=== PATIENT | female | born 1960 | race Caucasian/White ===

== ENCOUNTER 2020-09-05 12:19 | Outpatient (REF) | payer OTHER, SELFPAY ==
[2020-09-05 14:08] LABS: MANUAL DIFF FLAG NO
[2020-09-05 14:16] LABS: Basophils Percent Auto 0.8 % (0-2); Eosinophils Absolute Auto 0.2 X10*3/uL (0.0-0.4); Eosinophils Percent Auto 4.7 % (0-4); Hematocrit 38.9 % (37-47); Imm Gran Abs Auto 0.01 X10*3/uL (0.00-0.03); Imm Gran Pct Auto 0.2 % (0.0-0.4); Lymphocytes Absolute Auto 1.8 X10*3/uL (1.2-4.9); Lymphocytes Percent Auto 34.3 % (20-40); Mean Corpuscular HGB Conc 33.4 g/dl (31.0-35.0); Mean Corpuscular Hemoglobin 30.2 pg (27.0-33.0); Mean Corpuscular Volume 90.5 fL (80-98); Mean Platelet Volume 10.1 fL (9.4-12.3); Monocytes Absolute Auto 0.3 X10*3/uL (0.1-1.2); Neutrophils Absolute Auto 2.8 X10*3/uL (2.0-8.3); Platelet Count 265 X10*3/uL (160-400); Red Cell Distribution Width 12.7 % (11.0-16.0); White Blood Count 5.2 X10*3/uL (4.8-10.8)
[2020-09-05 14:47] LABS: Alanine Aminotransferase 26 U/L (0-31); Albumin Level 4.4 g/dL (3.5-5.0); Alkaline Phosphatase 54 U/L (39-117); Anion Gap 12 (12-20); Aspartate Amino Transferase 25 U/L (5-31); Bilirubin Direct 0.3 mg/dL (0.0-0.5); Bilirubin Total 0.5 mg/dL (0.0-1.0); Blood Urea Nitrogen 17 mg/dL (9-16); C Reactive Protein 0.11 mg/dL (< or = 0.50); Calcium 9.4 mg/dL (8.4-10.2); Carbon Dioxide 30 mmol/L (22-29); Chloride 104 mmol/L (96-108); Estimated Glomerular Filt Rate > 60; Potassium 4.2 mmol/l (3.3-5.1); Sodium 142 mmol/L (135-145); Total Protein 6.7 g/dL (6.5-8.0)
[2020-09-05 15:10] LABS: Thyroid Stimulating Hormone 1.22 mIU/mL (0.32-4.0)
[2020-09-05 15:14] LABS: Erythrocyte Sedimentation Rate 3 MM/HR (0-20)
[2020-09-05 18:15] LABS: T4 Thyroxine 6.9 ug/dL (4.5-12.0)
[2020-09-06 17:08] LABS: Immunoglobulin A 67 mg/dL (47-310)
[2020-09-06 18:42] LABS: Transglutaminase Ab IgG 3 U/mL; Transglutaminase IgA 1 U/mL
[2020-09-09 18:52] LABS: Endomysial IgA Antibody Negative (Negative)
[2020-09-10 13:26] LABS: Gliadin Deamidated IgA Ab 2 Units; Gliadin Deamidated IgG Ab 2 Units
== END 2020-09-05 12:20 | disposition home or self-care (01) ==
LOC: HO.10HDL 12:19
PROVIDERS: Visit Provider Internal Medicine
DX: R19.7 Diarrhea, unspecified (principal)
CPT/HCPCS: 36415; 80051; 80076; 82310; 82565; 82784; 83516; 84436; 84443; 84520; 85025; 85652; 86140; 86255; 86256

== ENCOUNTER 2020-09-06 13:09 | Outpatient (REF) | payer OTHER, SELFPAY ==
[2020-09-06 15:02] LABS: Leukocytes Stool Qualitative NEGATIVE (NEGATIVE)
[2020-09-07 01:37] LABS: CDIFF Ag Negative (Negative); CDIFF Internal ctrl Dots and bkg OK (V); CDiff Toxin Negative (Negative)
[2020-09-13 15:57] LABS: Calprotectin, Fecal 23 mcg/g
== END 2020-09-06 13:10 | disposition home or self-care (01) ==
LOC: HO.10HDLNP 13:09
PROVIDERS: Visit Provider Internal Medicine
DX: R19.7 Diarrhea, unspecified (principal)
CPT/HCPCS: 83993; 87045; 87046; 87177; 87209; 87324; 87329; 87449; 89055

== ENCOUNTER 2020-09-23 12:21 | Day surgery (SDC) | payer OTHER, SELFPAY ==
[2020-09-17 12:44] VITALS: BMI 29.5
--- NOTE | 2020-09-19 15:46 | P.CONAN_ITS ---
Documented by User: Elsie Salinas 09/19/20 15:47 HPI - Anesthesia Eval Consult details Narrative: 60yo F for Colonoscopy PMFSH Past Medical History Medical History Arrhythmia Asthma Depression Elevated cholesterol HTN (hypertension) Lab test negative for COVID-19 virus Sleep apnea Thyroid disease Surgical History Surgical History H/O colonoscopy Hx of cone biopsy of cervix Hx of left inguinal hernia repair Hx of nasal septoplasty Hx of tonsillectomy Social History Social History Smoking Status: Never smoker Use of substances other than those prescribed or required for medical reasons: No Have you been hit, kicked, punched, or otherwise hurt by someone within the past year? If so, by whom?: No Advance Directives Information Provided: No Recently lost weight without trying: No Meds Allergies Allergy/AdvReac Type Severity Reaction Status Date / Time Sulfa (Sulfonamide Allergy Intermediate HIVES Verified 09/17/20 13:00 Antibiotics) [SULFA (SULFONAMIDE ANTIBIOTICS)] ENVIRONMENTAL Allergy Intermediate ASTHMA Uncoded 09/17/20 13:00 Home Medications Medication Instructions Recorded Confirmed Type albuterol sulfate [ProAir HFA] 2 puff INHALATION Q4-6H PRN 09/17/20 09/17/20 History bupropion HCl [Wellbutrin SR] 150 mg PO DAILY 09/17/20 09/17/20 History estradiol [Estrace] 1 g VAGINAL 3XW 09/17/20 09/17/20 History fluticasone propionate [Flonase] 1 spray INTRANASAL DAILY 09/17/20 09/17/20 Hist ory levothyroxine [Synthroid] 100 mcg PO DAILY 09/17/20 09/17/20 History lisinopril 20 mg PO DAILY 09/17/20 09/17/20 History multivitamin 1 tab PO DAILY 09/17/20 09/17/20 History sertraline [Zoloft] 150 mg PO DAILY 09/17/20 09/17/20 History simvastatin 10 mg PO BEDTIME 09/17/20 09/17/20 History Exam Exam Date and Time: September 19, 2020 1546 Height,Weight and Vital Signs: Height 5 ft 5.5 in Weight 81.647 kg Assessment and Plan Assessment Anesthesia Assessment: Chart Reviewed Documented by User: Norma Villa 09/23/20 13:07 [facility] Past Medical History Medical History Arrhythmia Asthma Depression Elevated cholesterol HTN (hypertension) Lab test negative for COVID-19 virus Sleep apnea Thyroid disease Surgical History Surgical History H/O colonoscopy Hx of cone biopsy of cervix Hx of left inguinal hernia repair Hx of nasal septoplasty Hx of tonsillectomy Social History Social History Smoking Status: Never smoker Use of substances other than those prescribed or required for medical reasons: No Have you been hit, kicked, punched, or otherwise hurt by someone within the past year? If so, by whom?: No Advance Directives Information Provided: No Recently lost weight without trying: No Meds Allergies Allergy/AdvReac Type Severity Reaction Status Date / Time Sulfa (Sulfonamide Allergy Intermediate HIVES Verified 09/17/20 13:00 Antibiotics) [SULFA (SULFONAMIDE ANTIBIOTICS)] ENVIRONMENTAL Allergy Intermediate ASTHMA Uncoded 09/17/20 13:00 Home Medications Medication Instructions Recorded Confirmed Type albuterol sulfate [ProAir HFA] 2 puff INHALATION Q4-6H PRN 09/17/20 09/17/20 History bupropion HCl [Wellbutrin SR] 150 mg PO DAILY 09/17/20 09/17/20 History estradiol [Estrace] 1 g VAGINAL 3XW 09/17/20 09/17/20 History fluticasone propionate [Flonase] 1 spray INTRANASAL DAILY 09/17/20 09/17/20 History levothyroxine [Synthroid] 100 mcg PO DAILY 09/17/20 09/17/20 History lisinopril 20 mg PO DAILY 09/17/20 09/17/20 History multivitamin 1 tab PO DAILY 09/17/20 09/17/20 History sertraline [Zoloft] 150 mg PO DAILY 09/17/20 09/17/20 History simvastatin 10 mg PO BEDTIME 09/17/20 09/17/20 History Exam Airway Mallampati Class: II TM Dist: >3cm Neck ROM: Full Heart: RRR Lungs: CTA BL Assessment and Plan Assessment Anesthesia Assessment: Anesthesia Plan Discussed and Chart Reviewed Final Anesthetic Review NPO: Yes (Sio wTer with meds) ASA Class: II Final Preanesthetic Review: No Changes in Pt Med Stat, Consent Obtained/Reviewed and Anes Risks/Benef Reviewed Patient Risk: Intermediate Procedure Risk: Intermediate Anesthetic Plan Anesthetic Plan: MAC: Disposition: Standard PACU
[2020-09-23 12:52] VITALS: BP 164/87; PULSE 58; RESP 18; TEMP 36.3; O2SAT 100
[2020-09-23] MEDS: Lactated Ringers 1,000 ML 100 ML IVCONT (13:05)
[2020-09-23 14:52] VITALS: BP 118/77; PULSE 66; RESP 18; TEMP 36.4; O2SAT 100
--- NOTE | 2020-09-23 14:58 | PM.OP ---
Brief Operative Note Date of Service: 09/23/20 Pre-op diagnosis: Diarrhea Post-op diagnosis: other (R/O Microscopic colitis) Procedure: Colonoscopy to cecum and TI with biopsies Surgeon: Ilya Isabel Anesthesia: MAC Estimated blood loss (mL): 3.0 Pathology: other (A. Terminal ileum B. Ascending colon C. Descending colon) Condition: stable Disposition: PACU
[2020-09-23 15:05] VITALS: BP 116/66; PULSE 55; RESP 18; O2SAT 100
--- NOTE | 2020-09-23 15:10 | OP_ITS ---
SURGEON: Ilya Isabel MD INDICATIONS: The patient presents for evaluation of change in bowel habits and diarrhea. Full consent has been obtained from her for this, including risks of bleeding and perforation. PREOPERATIVE DIAGNOSIS: POSTOPERATIVE DIAGNOSIS: PROCEDURE PERFORMED: Colonoscopy to the cecum and terminal ileum with biopsies. ESTIMATED BLOOD LOSS: COMPLICATIONS: ANESTHESIA: Monitored anesthesia care. ASSISTANTS: SPECIMENS: PREOPERATIVE DIAGNOSES: Change in bowel habits and diarrhea. POSTOPERATIVE DIAGNOSES: Change in bowel habits and diarrhea, rule out microscopic colitis, mild diverticulosis, small internal hemorrhoids. DESCRIPTION OF PROCEDURE: The patient was placed in the left lateral decubitus position. The digital rectal exam revealed no abnormalities. The Olympus video pediatric colonoscope was entered into the rectum and advanced to the cecum with the assistance of abdominal wall surgery. Once in the cecum, I did identify normal-appearing cecal pouch with appendiceal orifice and a normal-appearing ileocecal valve. The terminal ileum was cannulated and appeared normal. The biopsies were obtained. The scope was withdrawn back in the colon. The entire cecum and ileocecal valve appeared normal. The scope was slowly withdrawn assessing all mucosal surfaces carefully. Preparation was excellent. I did not visualize any sign of polyps, colitis, nor angiodysplasia. There was a mild amount of sigmoid diverticulosis. Random biopsies were obtained in the ascending and descending colon. Once in the rectum, scope was retroflexed visualizing internal hemorrhoids, but no other pathology. The rectal mucosa appeared normal. The scope was straightened out and withdrawn from the patient. She tolerated the procedure well and was returned to the recovery area in stable condition. IMPRESSION: 1. Grossly normal colonoscopy to cecum and terminal ileum. Rule out microscopic colitis. 2. Sigmoid diverticulosis. 3. Internal hemorrhoids. PLAN: The results of the biopsy will be checked. She has had recent laboratories that have all been negative including celiac disease serologies. Recent stool specimens were all negative as well. She will continue to use Imodium as needed. I did recommend she try some Metamucil or Citrucel fiber supplement to see if that can help improve her bowel movement irregularity. She will be seen within 1 or 2 months for a followup visit. She was advised to call sooner if needed. This has been discussed with her . MD VIET Kamara/IVETTE / [id number]
--- NOTE | 2020-09-23 15:36 | HO.POSTANES ---
Post Anesthesia Evaluation Post Anesthesia Evaluation Vital Signs: Vital Signs Temp Pulse Resp BP Pulse Ox 09/23/20 15:05 97.6 F 55 18 116/66 100 09/23/20 14:52 97.6 F 66 18 118/77 100 09/23/20 12:52 97.4 F 58 18 164/87 H 100 Anesthesia: General (tiva) Mental Status: Awake Pain Control: Satisfactory Nausea/Vomiting: None Hydration: Adequate Anesthesia-Related Issues: No Anes. Related Issues
== END 2020-09-23 15:50 | disposition home or self-care (01) ==
PROVIDERS: PCP Nurse Practitioner Adult Health; Visit Provider Internal Medicine
PROC: 0DJD8ZZ Inspection of Lower Intestinal Tract, Via Natural or Artificial Opening Endoscopic (ICD-10-PCS; CPT 45378; principal; 2020-09-23 13:40)
DX: R19.4 Change in bowel habit (principal); R19.7 Diarrhea, unspecified; K57.30 Diverticulosis of large intestine without perforation or abscess without bleeding; K64.8 Other hemorrhoids; J45.909 Unspecified asthma, uncomplicated; I10 Essential (primary) hypertension; Z79.899 Other long term (current) drug therapy; Z88.2 Allergy status to sulfonamides
CPT/HCPCS: 45380; 88305

== ENCOUNTER 2020-10-03 08:16 | Day surgery (SDC) | payer OTHER, SELFPAY ==
[2020-09-25 08:15] VITALS: BMI 29.5
[2020-09-25 08:19] VITALS: BMI 29.5
--- NOTE | 2020-10-01 13:29 | HP_ITS ---
DATE OF SERVICE: 10/03/2020 PREOPERATIVE DIAGNOSES: 1. Hallux abductovalgus deformity, right foot. 2. Hammertoe deformity, right 2nd toe. 3. 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 PLANNED PROCEDURE: 1. Jai bunionectomy, right foot. 2. Hammertoe repair, right 2nd toe. 3. Capsulotomy, tenotomy, right 2nd metatarsophalangeal joint. PAST MEDICAL HISTORY: Arthritis, asthma, hip, back and knee pain; high cholesterol, depression, high blood pressure, thyroid disorder, chickenpox. MEDICATIONS: Synthroid, bupropion, sertraline, simvastatin, lisinopril, estradiol, ProAir. SURGICAL HISTORY: Tonsillectomy, hernia repair, cervical cone biopsy, and colonoscopy. FAMILY HISTORY: Significant for cancers, high blood pressure, and stroke. SOCIAL HISTORY: The patient is a nonsmoker. Denies any illicit drug use. Relates occasional alcohol use. 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 ALLERGIES: BACTRIM, IODINE, AND MERTHIOLATE. HOSPITALIZATIONS: None. REVIEW OF SYSTEMS: Within normal limits. HISTORY OF PRESENT ILLNESS: This is a 60-year-old female, who presents with pain in her right foot at the great toe joint bunion, her 2nd toe as well and has been present for several months. This has been gradually getting worse. It is painful with any pressure, standing, or walking. She has tried rest, padding, bracing, straps, wraps, and change in shoes. PHYSICAL EXAMINATION: GENERAL: Reveals a pleasant, alert, well-nourished, well-developed, well-hydrated individual, who demonstrates proper attention to hygiene and body habitus, in no acute distress. She is oriented x3. NEUROLOGICAL: Reveals intact sensorium. Pain sensation is normal. Vibratory sensation is intact. Pinprick sensation is normal. The patient denies any anesthesias, burning, paresthesias, or tingling bilaterally. There is no interspace pain noted on palpation to her neuroma areas. VASCULAR EXAM: DP and PT pulses are 3/4 bilaterally. Capillary refill is immediate to all digits. Skin temperature, elasticity, and turgor is normal bilaterally. Hair growth is normal. Pigmentation is normal. There is no edema. ORTHOPEDIC EXAM: Muscle strength is 5/5 to all groups in a symmetrical fashion. Bunion deformity is noted with a medially prominent 1st metatarsophalangeal joint with lateral tracking of the 1st metatarsophalangeal joint which is incompletely reducible on the right foot. Digital deformities reveal digital contracture of the PIP joint, 2 through 5 bilaterally incompletely reducible to push-up test. No over or underlapping with MPJ contracture, dorsal subluxation of the right 2nd toe. DIAGNOSTIC DATA: X-ray results revealed normal bone and soft tissue density consistent with patient's age and sex. Digital exam shows asymmetrical joint space narrowing of the PIP joint consistent with clinical findings of hammertoe deformity showing large hypertrophied phalangeal heads consistent with hammertoe deformity and dorsal subluxation of the metatarsophalangeal joint at the 2nd digit. Bunion area shows increased 1st intermetatarsal angle and hallux abductus angle consistent with bunion deformity, hypertrophy of the dorsal and medial 1st metatarsal head with a subchondral cyst present. There are no fractures noted. PLAN: The patient is scheduled for surgery at [facility]. Surgery was discussed in detail with the patient including risks of surgery and not having surgery, the potential surgical complications, the anesthesia and the usual postoperative course. No guarantees were given. We discussed with the patient complications such as, but not limited to delayed or nonhealing, excessive scarring, excessive swelling, failure of the procedure, floppy toe infection, nonunion, numbness, chronic pain, recurrence, shortened toe, joint stiffness, failure of the procedure, and loss of toe, foot, life, or limb. Alternatives of the procedure were also discussed including conservative care. Discussed with the patient both Jai versus modified Nagy bunionectomy due to the cyst in the metatarsal head. The patient agrees to both procedures, pending size of the cyst intraoperatively. Also, discussed hammertoe repair with contracture of the 2nd metatarsophalangeal joint with and without pins. The patient consents to all procedures. The patient would like to proceed with surgical treatment. The patient will obtain preoperative labs as well as medical clearance for surgery and anesthesia. The patient is made aware to stop any and all blood thinners including fish oil at least 1 week prior to surgery. The patient is made aware of the fact that driving may not be allowed during a portion of the postoperative period. The patient is also made aware not to utilize any smoking tobacco products at least 1 month prior to surgery and for 3 months postoperatively to facilitate bone healing. The [employer] was checked. No contraindications were noted for narcotic prescription and Percocet was given for breakthrough pain. Also, recommended alternate staggering Extra Strength Tylenol and Motrin 800 mg for discomfort and the patient will be partial weightbearing in a surgical shoe with crutches afterwards. Janelle Bullock DPM LP/IVETTE / [phone]
--- NOTE | 2020-10-02 12:10 | P.CONAN_ITS ---
Documented by User: Elsie Salinas 10/02/20 12:15 HPI - Anesthesia Eval Consult details Narrative: 60yo F for Bunionectomy,Hammer toe 2ND RIGHT,Release of MPJ [facility] Past Medical History Medical History Arrhythmia Asthma Depression Elevated cholesterol HTN (hypertension) Lab test negative for COVID-19 virus Sleep apnea Thyroid disease Surgical History Surgical History H/O colonoscopy Hx of cone biopsy of cervix Hx of left inguinal hernia repair Hx of nasal septoplasty Hx of tonsillectomy Social History Social History Smoking Status: Never smoker Use of substances other than those prescribed or required for medical reasons: No Have you been hit, kicked, punched, or otherwise hurt by someone within the past year? If so, by whom?: No Advance Directives Information Provided: No Recently lost weight without trying: No Meds Allergies Allergy/AdvReac Type Severity Reaction Status Date / Time Sulfa (Sulfonamide Allergy Intermediate HIVES Verified 10/03/20 08:23 Antibiotics) [SULFA (SULFONAMIDE ANTIBIOTICS)] ENVIRONMENTAL Allergy Intermediate ASTHMA Uncoded 09/17/20 13:00 Home Medications Medication Instructions Recorded Confirmed Type albuterol sulfate [ProAir HFA] 2 puff INHALATION Q4-6H PRN 09/17/20 10/03/20 History bupropion HCl [Wellbutrin SR] 150 mg PO DAILY 09/17/20 10/03/20 History estradiol [Estrace] 1 g VAGINAL 3XW 09/17/20 10/03/20 History fluticasone propionate [Flonase] 1 spray INTRANASAL DAILY 09/17/20 10/03/20 History levothyroxine [Synthroid] 100 mcg PO DAILY 09/17/20 10/03/20 History lisinopril 20 mg PO DAILY 09/17/20 10/03/20 History multivitamin 1 tab PO DAILY 09/17/20 10/03/20 History sertraline [Zoloft] 150 mg PO DAILY 09/17/20 10/03/20 History simvastatin 10 mg PO BEDTIME 09/17/20 10/03/20 History Exam Exam Date and Time: October 02, 2020 1210 Height,Weight and Vital Signs: Height 5 ft 5.5 in Weight 81.647 kg Pertinent Lab Results Pertinent Lab Results: Laboratory Tests 09/05/20 09/05/20 12:30 12:30 WBC 5.2 Hgb 13.0 Hct 38.9 Plt Count 265 Sodium 142 Potassium 4.2 Chloride 104 Carbon Dioxide 30 H BUN 17 H Creatinine 0.90 Assessment and Plan Assessment Anesthesia Assessment: Chart Reviewed Documented by User: Princess Vargas 10/03/20 10:27 [facility] Past Medical History Medical History Arrhythmia Asthma Depression Elevated cholesterol HTN (hypertension) Lab test negative for COVID-19 virus Sleep apnea Thyroid disease Surgical History Surgical History H/O colonoscopy Hx of cone biopsy of cervix Hx of left inguinal hernia repair Hx of nasal septoplasty Hx of tonsillectomy Social History Social History Smoking Status: Never smoker Use of substances other than those prescribed or required for medical reasons: No Have you been hit, kicked, punched, or otherwise hurt by someone within the past year? If so, by whom?: No Advance Directives Information Provided: No Recently lost weight without trying: No Meds Allergies Allergy/AdvReac Type Severity Reaction Status Date / Time Sulfa (Sulfonamide Allergy Intermediate HIVES Verified 10/03/20 08:23 Antibiotics) [SULFA (SULFONAMIDE ANTIBIOTICS)] ENVIRONMENTAL Allergy Intermediate ASTHMA Uncoded 09/17/20 13:00 Home Medications Medication Instructions Recorded Confirmed Type albuterol sulfate [ProAir HFA] 2 puff INHALATION Q4-6H PRN 09/17/20 10/03/20 History bupropion HCl [Wellbutrin SR] 150 mg PO DAILY 09/17/20 10/03/20 History estradiol [Estrace] 1 g VAGINAL 3XW 09/17/20 10/03/20 History fluticasone propionate [Flonase] 1 spray INTRANASAL DAILY 09/17/20 10/03/20 History levothyroxine [Synthroid] 100 mcg PO DAILY 09/17/20 10/03/20 History lisinopril 20 mg PO DAILY 09/17/20 10/03/20 History multivitamin 1 tab PO DAILY 09/17/20 10/03/20 History sertraline [Zoloft] 150 mg PO DAILY 09/17/20 10/03/20 History simvastatin 10 mg PO BEDTIME 09/17/20 10/03/20 History Exam Airway Mallampati Class: III TM Dist: >3cm Neck ROM: Full Heart: RRR Lungs: CTA
[2020-10-03 08:40] VITALS: BP 161/83; PULSE 56; RESP 16; TEMP 36.7; O2SAT 97
[2020-10-03] MEDS: Lactated Ringers 1,000 ML 100 ML IVCONT (08:57)
[2020-10-03] MEDS: ceFAZolin Sodium/Dextrose,Iso 2 GM/50 ML PIGGYBACK IV (08:57)
--- NOTE | 2020-10-03 09:45 | MHC.SHP ---
Pre-Procedural Eval Section A The patient is an INPATIENT: No Changes since office visit: No Cold of Flu in the past 2 weeks, No New Medical Problems, No Changes in Medication and No Patient answered all questions The History & Physical has been completed within 30 days and I have reviewed it.: Yes Section B Chief Complaint: RIGHT HALLUX VALGUS,HAMMER TOE Allergies: Allergies Allergy/AdvReac Type Severity Reaction Status Date / Time Sulfa (Sulfonamide Allergy Intermediate HIVES Verified 10/03/20 08:23 Antibiotics) [SULFA (SULFONAMIDE ANTIBIOTICS)] ENVIRONMENTAL Allergy Intermediate ASTHMA Uncoded 09/17/20 13:00 Plan Patient has been examined and remains a candidate for the planned procedure
--- NOTE | 2020-10-03 10:27 | HO.ANESPROP2 ---
[facility] Past Medical History Medical History Arrhythmia Asthma Depression Elevated cholesterol HTN (hypertension) Lab test negative for COVID-19 virus Sleep apnea Thyroid disease Surgical History Surgical History H/O colonoscopy Hx of cone biopsy of cervix Hx of left inguinal hernia repair Hx of nasal septoplasty Hx of tonsillectomy Social History Social History Smoking Status: Never smoker Use of substances other than those prescribed or required for medical reasons: No Have you been hit, kicked, punched, or otherwise hurt by someone within the past year? If so, by whom?: No Advance Directives Information Provided: No Recently lost weight without trying: No Meds Allergies Allergy/AdvReac Type Severity Reaction Status Date / Time Sulfa (Sulfonamide Allergy Intermediate HIVES Verified 10/03/20 08:23 Antibiotics) [SULFA (SULFONAMIDE ANTIBIOTICS)] ENVIRONMENTAL Allergy Intermediate ASTHMA Uncoded 09/17/20 13:00 Home Medications Medication Instructions Recorded Confirmed Type albuterol sulfate [ProAir HFA] 2 puff INHALATION Q4-6H PRN 09/17/20 10/03/20 History bupropion HCl [Wellbutrin SR] 150 mg PO DAILY 09/17/20 10/03/20 History estradiol [Estrace] 1 g VAGINAL 3XW 09/17/20 10/03/20 History fluticasone propionate [Flonase] 1 spray INTRANASAL DAILY 09/17/20 10/03/20 History levothyroxine [Synthroid] 100 mcg PO DAILY 09/17/20 10/03/20 History lisinopril 20 mg PO DAILY 09/17/20 10/03/20 History multivitamin 1 tab PO DAILY 09/17/20 10/03/20 History sertraline [Zoloft] 150 mg PO DAILY 09/17/20 10/03/20 History simvastatin 10 mg PO BEDTIME 09/17/20 10/03/20 History Exam Exam Date and Time: October 03, 2020 1027 Height,Weight and Vital Signs: Height 5 ft 5.5 in Weight 81.647 kg Last Vital Signs Temp 98.1 F 10/03/20 08:40 Pulse 56 10/03/20 08:40 Resp 16 10/03/20 08:40 BP 161/83 H 10/03/20 08:40 Pulse Ox 97 10/03/20 08:40 Assessment and Plan Assessment Anesthesia Assessment: Anesthesia Plan Discussed and Chart Reviewed Final Anesthetic Review NPO: Yes ASA Class: III Final Preanesthetic Review: No Changes in Pt Med Stat, Meds/Allgs Chart Reviewed, Consent Obtained/Reviewed and Anes Risks/Benef Reviewed Patient Risk: Low Procedure Risk: Low Anesthetic Plan Anesthetic Plan: MAC: Disposition: Standard PACU
[2020-10-03 11:00] VITALS: BP 133/80; PULSE 65; RESP 16; TEMP 36.4; O2SAT 97
--- NOTE | 2020-10-03 11:08 | W.PM.OPN ---
Operative Note Operative Note Date of Service: 10/03/20
--- NOTE | 2020-10-03 11:09 | P.BOP_ITS ---
Brief Operative Note Date of Service: 10/03/20 Pre-op diagnosis: Hallux Valgus, hammertoe 2nd, contracture 2nd MPJ Right foot Post-op diagnosis: same Procedure: Modified Nagy Bunionectomy, hammertoe repair 2nd, tenotomy/capsulotomy 2nd MPJ Right Implants: Amniofix Surgeon: Janelle Bullock Anesthesia: MAC and local Apparatus Engineering Technologist: Sage Priest Estimated blood loss (mL): 1 Tourniquet time (min): 34 Pathology: other Condition: stable Disposition: PACU
[2020-10-03 11:15] VITALS: BP 141/77; PULSE 55; RESP 16; O2SAT 98
[2020-10-03 11:30] VITALS: BP 161/94; PULSE 51; RESP 16; TEMP 36.1; O2SAT 98
--- NOTE | 2020-10-03 12:00 | HO.POSTANES ---
Post Anesthesia Evaluation Post Anesthesia Evaluation Vital Signs: Vital Signs Temp Pulse Resp BP Pulse Ox 10/03/20 11:30 96.9 F 51 16 161/94 H 98 10/03/20 11:15 55 16 141/77 H 98 10/03/20 11:00 97.5 F 65 16 133/80 97 10/03/20 08:40 98.1 F 56 16 161/83 H 97 Anesthesia: Monitored Mental Status: Awake Pain Control: Satisfactory Nausea/Vomiting: None Hydration: Adequate Anesthesia-Related Issues: No Anes. Related Issues
--- NOTE | 2020-10-03 14:05 | OP_ITS ---
SURGEON: Janelle Bullock DPM PREOPERATIVE DIAGNOSES: 1. Hallux abductovalgus deformity, right foot. 2. Hammertoe deformity, right second toe. 3. Contracture of right second metatarsophalangeal joint. POSTOPERATIVE DIAGNOSES: 1. Hallux abductovalgus deformity, right foot. 2. Hammertoe deformity, right second toe. 3. Contracture of right second metatarsophalangeal joint. PROCEDURES PERFORMED: 1. Right modified Nagy bunionectomy. 2. Hammertoe deformity, right second toe. 3. Tenotomy and capsulotomy, right second metatarsophalangeal joint. ESTIMATED BLOOD LOSS: Less than 1 cc. COMPLICATIONS: None. ANESTHESIA: Monitored anesthetic care with local consisting preoperatively of 18 cc of 0.5% Marcaine plain and 2% lidocaine plain, and postoperatively of 5 cc of 0.5% Marcaine plain and 1 cc of dexamethasone. ASSISTANTS: Sage Priest DPM SPECIMENS: Bone HEMOSTASIS: Pneumatic ankle tourniquet set at 250 mmHg for 34 minutes. INDICATIONS FOR SURGERY: The patient had painful bunion and hammertoe deformity to the right foot with contracture of the second metatarsophalangeal joint. The patient relates pain had been getting progressively worse. The patient states that she would like to the proceed with surgical intervention. The above-mentioned surgeries were discussed in detail with the patient including risks, benefits, and possible complications. No guarantees were given, and a written and oral informed consent was obtained. PROCEDURE IN DETAIL: The patient was brought into the operating room, placed on the table in the supine position. Following IV sedation and administration of the above-mentioned local anesthetic, 2 g of cefazolin was administered to the right foot. The right foot was scrubbed, prepped, and draped in a sterile manner. The pneumatic ankle tourniquet was inflated. Attention was directed to the right first metatarsophalangeal joint where incision was made approximately 7 cm. Incision was deepened down to subcutaneous tissue with great care being taken to retract all vital and neurovascular structures, and all bleeders were cauterized as necessary. A capsulotomy was made medial and parallel to the extensor tendons. The soft tissues were freed about the head of the first metatarsal. Using a sagittal saw, the large medial eminence was resected and passed from operative site. During resection of the medial eminence, it was noted that the bone was soft with a bone cyst noted into the head of the first metatarsal. Upon removal of the medial eminence, it was decided not to proceed with Jai bunionectomy as the bone was soft and did have cystic changes to the first metatarsal head, which would make fixation with screws difficult. There was also significant correction with the lateral release and resection of the medial eminence of the bunion deformity. The McGlamry elevator was introduced to free up any adhesions about the first metatarsal head and then a lateral release was performed. Attention was directed via the same incision to the first metatarsal head, where the deep transverse intermetatarsal ligament was transected, the head of the fibular sesamoidal ligament, the head of the adductor tendon aligned the first metatarsal head to drift into a more corrected position. There was noted to be excellent range of motion in the fist metatarsophalangeal joint. The wound was then irrigated with copious amounts of normal sterile saline. The subcutaneous tissues were reapproximated with 3-0 Vicryl in a continuous running fashion. A piece of AmnioFix was placed intracapsular and the piece was placed extracapsular. The skin was reapproximated with 4-0 Monocryl in a continuous running fashion. The ZipLine from [employer] was placed over the incision for continued closure. Attention was then directed to the second toe at the level of the PIP joint where an incision was made approximately 4 cm in length. The incision was deepened down to subcutaneous tissue. Great care was taken to retract vital and neurovascular structures, and all bleeders were cauterized as necessary. The transverse tenotomy was made at the level of the PIP joint, freeing the head of the proximal phalanx. Using sagittal saw, proximal phalanx head was resected and passed from the operative site. The wound was irrigated with normal sterile saline. Attention was directed to the first metatarsophalangeal joint where a stab incision was made. The incision transected the tight extensor tendon and a tenotomy as well as a capsulotomy of the second metatarsophalangeal joint was performed allowing the proximal phalanx to drift into a more corrected position. At this time, no K-wire was needed as the toe had drifted back into a rectus position. The tendon at the PIP joint was then reapproximated with 3-0 Vicryl in an interrupted suture technique. The skin at both incisions was reapproximated with 4-0 nylon in a continuous running fashion. A postoperative injection of 5 cc of 0.5% Marcaine plain and 1 cc of dexamethasone was administered to the right foot. Right foot was then dressed with 4x4s, fluffs, Kerlix, cast padding, and an LISA bandage. The pneumatic ankle tourniquet was deflated prior to the application of the LISA bandage and prompt capillary refill was noted to all 5 digits. The patient tolerated the procedure and anesthesia well. The patient was transferred to the recovery room with vital signs stable and vascular status at preoperative levels. Following a period of postoperative recovery, the patient will be discharged home with written and oral postoperative instructions. The patient is to follow up in my office for all postoperative followup care and if any problems arise. REGGIE Villafana / [phone] MTDJaymie
== END 2020-10-03 12:08 ==
LOC: HO.SSS 08:17
PROVIDERS: PCP Nurse Practitioner Adult Health; Visit Provider Podiatrist
PROC: (CPT 28292; principal; 2020-10-03 09:50)
DX: M20.11 Hallux valgus (acquired), right foot (principal); M21.611 Bunion of right foot; M20.41 Other hammer toe(s) (acquired), right foot; M24.574 Contracture, right foot; G47.33 Obstructive sleep apnea (adult) (pediatric); I10 Essential (primary) hypertension; Z99.89 Dependence on other enabling machines and devices; Z79.899 Other long term (current) drug therapy
CPT/HCPCS: 28292; 28285; 28234; 88304; 88311; J0690; J1100; J2250; Q4186

== ENCOUNTER 2021-01-07 12:17 | Outpatient (REF) | payer OTHER, SELFPAY ==
[2021-01-07 14:58] LABS: Blood Urea Nitrogen 16 mg/dL (9-16); Estimated Glomerular Filt Rate > 60
== END 2021-01-07 12:18 | disposition home or self-care (01) ==
LOC: HO.10HDL 12:17
PROVIDERS: Visit Provider Internal Medicine
DX: R19.7 Diarrhea, unspecified (principal)
CPT/HCPCS: 36415; 82565; 84520

== ENCOUNTER 2021-01-20 13:52 | Outpatient (REF) | payer OTHER, SELFPAY ==
--- NOTE | ~2021-01-20 | CT_ITS ---
EXAMINATION: CT ABDOMEN AND PELVIS WITH CONTRAST CLINICAL INFORMATION: Diarrhea. COMPARISON: None TECHNIQUE: Multidetector volumetric images were obtained from the superior aspect of the liver through the pubic symphysis following administration 85 mL of Omnipaque 350 intravenous contrast. Sagittal and coronal reformatted images were obtained on the technologist's workstation. Oral contrast: No This CT examination was performed using dose optimization techniques as appropriate, variously including the following: *Automated exposure control *Adjustment of mA and/or kV according to patient size (this includes techniques or standardized protocols for targeted exams where dose is matched to indication/reason for exam; i.e. extremities or head) *Use of iterative reconstruction technique DLP: 481 mGy-cm FINDINGS: LUNG BASES: The lung bases are clear. The heart size is normal. There is a small hiatal hernia. LIVER, GALLBLADDER, AND BILIARY TREE: The liver is normal in size, shape, and attenuation. No focal hepatic lesion or biliary ductal dilatation is present. The gallbladder is unremarkable with no evidence of radiopaque gallstones, gallbladder wall thickening, or obvious pericholecystic inflammatory changes. PANCREAS: Unremarkable. SPLEEN: Unremarkable. ADRENAL GLANDS: Unremarkable. KIDNEYS AND URETERS: The kidneys are normal in size, shape, and attenuation. No hydronephrosis, hydroureter, or calculi seen. No perinephric stranding. There is a 6 mm hypodensity in midpole of right kidney. BLADDER: Unremarkable. GASTROINTESTINAL TRACT: There is scattered stool seen throughout the entire colon without any distention. Oral opacified small bowel loops are normal caliber. The stomach is nondistended. The appendix is normal caliber. ABDOMINAL WALL: No significant hernia is appreciated. LYMPH NODES: Normal. VASCULAR: Unremarkable. PELVIC VISCERA: The uterus is anteverted and retroflexed. No free fluid or adnexal mass seen. OSSEOUS STRUCTURES: There are degenerative disc changes L1-L2 through L5-S1 disc levels with ventral spondylosis. There is minimal dextroscoliosis of the lumbar spine. CT/CT abdomen pelvis w con IMPRESSION: Moderate constipation. No mural thickening or obstruction seen. The small bowel loops are normal caliber. Small cyst right kidney.
== END 2021-01-20 13:53 | disposition home or self-care (01) ==
LOC: HO.CT 13:52
PROVIDERS: Visit Provider Internal Medicine
DX: R19.7 Diarrhea, unspecified (principal)
CPT/HCPCS: 74177; Q9967